=== PATIENT | female | born 2000 | race Asian ===

== ENCOUNTER 2022-12-28 16:01 | Outpatient (CLI) | payer BC, SELFPAY ==
[2022-12-28 18:50] LABS: HIV 1/2/P24 Combo Screen* Negative (Negative)
[2022-12-28 18:58] LABS: Hepatitis C Virus Antibody* Negative (Negative)
== END 2022-12-28 16:02 | disposition home or self-care (01) ==
PROVIDERS: Visit Provider Obstetrics & Gynecology
DX: N89.8 Other specified noninflammatory disorders of vagina (principal); L98.9 Disorder of the skin and subcutaneous tissue, unspecified
CPT/HCPCS: 86703; 86803

== ENCOUNTER 2022-12-30 19:47 | Emergency (ER) | payer BC, SELFPAY ==
[2022-12-30 19:52] VITALS: BP 115/75; PULSE 91; RESP 18; TEMP 36.7; O2SAT 99; BMI 23.2
--- NOTE | 2023-01-01 09:51 | ED.GENADULT ---
HPI - General Adult General Chief complaint: Dental/Oral/Mouth Injury/Pain Stated complaint: Bad Mouth Sores,Right Ear Numb & Ringing Time Seen by Provider: 12/30/22 20:03 History of Present Illness HPI narrative: 9-10 months of patchy bruises occurring in various areas of her body. Increasingly red in the lower extremities. These have been present and are reactivated her irritated if she scratches them. Also has had oral lesions corresponding with these flares of bruises. Neither do these go away but they do settle down and periodically flare corresponding with the bruisings. These oral lesions can begin with blisters. [facility]ops[facility] similar [facility] Has had corresponding time of vaginal itching which she treats periodically as if potential yeast infection. There appears to be question of potential lichen planus. Does have a history of vitiligo never treated with steroids. distressed in large part because mouth can get so painful especially overnight. Has what sounds like cosmetic dermatology appointment tomorrow and appointment with associated dermatologists in 2 days time. From [place] without clearly established primary care here. Related Data Previous Rx's Medication Instructions Recorded Magic Mouthwash 5 - 10 ml PO QID #240 mL 12/30/22 (Lidocaine/Benadryl/Maalox) 120 mL suspension Magic Mouthwash 5 - 10 ml PO QID #240 mL 12/30/22 (Lidocaine/Benadryl/Maalox) 120 mL suspension triamcinolone acetonide 0.025 % 1 applic topical BID PRN Vulvar 01/02/23 topical cream Itching #15 grams Allergies Allergy/AdvReac Type Severity Reaction Status Date / Time latex Allergy Intermediate Numbness Verified 12/30/22 19:55 Penicillins Allergy Intermediate Hives Verified 12/30/22 19:55 Review of Systems Status of ROS: Reports: 10 or more systems reviewed and unremarkable except as noted in History and below PFSH PFSH Family History (Updated 12/28/22 @ 16:11 by Liliya Bo MD) Mother High blood pressure Uncle Schizophrenia Social History Narrative: Single, 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 Highest level of school completed/degree received: Bachelor's degree Smoking Status: Current some day smoker How often do you have a drink containing alcohol: 2-3 times a week AUDIT-C Alcohol total score: 3 Non-prescribed substance use: denies use Are you now , , , , never or living with a partner: never Social isolation score (0-1 are the most socially isolated patients): 0 Do you think of yourself as: straight/heterosexual Gender Identity: female Are you currently sexually active: Yes In the past 12 months, how many sex partners have you had: more than one What kind of protection do you use against STDs: condoms Are you using contraception or practicing any form of control: Yes (Condoms, nonlatex) Exam Narrative: Exam Narrative: Pleasant nad. breathing easily with clear lungs. heart with rrr no mrg. cn 2 - 12 intact. Whitish lacy lesions overlying some speckling almost blister formation as well over the soft palate and in the upper posterior jaw. There are some with erythematous base. Skin with numerous irregular shape and size purpuric patches. They are fainter on the lower extremities and generally more mildly erythematous. Thumbnails with central depressions on both thumb nails as well as horizontal ridges on most finger nails. Evidence of picking on at least the thumb nails and periungual folds. not examined. Const: Documenting provider has reviewed patient's vital signs: yes Course Vital Signs Vital signs: Initial Vital Signs Temperature 98.0 F 12/30/22 19:52 Temperature Source Temporal Artery Scan 12/30/22 19:52 Pulse Rate 91 12/30/22 19:52 Respiratory Rate 18 12/30/22 19:52 Blood Pressure 115/75 12/30/22 19:52 Blood Pressure Mean 88 12/30/22 19:52 Blood Pressure Position Sitting 12/30/22 19:52 Pulse Oximetry 99 12/30/22 19:52 Oxygen Delivery Method 12/30/22 19:52 Vital Signs Temperature 98.0 F 12/30/22 19:52 Pulse Rate 91 12/30/22 19:52 Respiratory Rate 18 12/30/22 19:52 Blood Pressure 115/75 12/30/22 19:52 Pulse Oximetry 99 12/30/22 19:52 Oxygen Delivery Method 12/30/22 19:52 Temperature 98.0 F 12/30/22 19:52 Pulse Rate 91 12/30/22 19:52 Respiratory Rate 18 12/30/22 19:52 Blood Pressure 115/75 12/30/22 19:52 Pulse Oximetry 99 12/30/22 19:52 Oxygen Delivery Method 12/30/22 19:52 Medical Decision Making MDM Narrative Medical decision making narrative: reviewed labs with Valerie from 2 days ago. I think that workup with dermatology appropriate at this point. perhaps eventually rheumatology. lichen planus does remain in the differential. Discharge Plan Discharge Clinical Impression: Oral mucosal lesion, Purpura Patient Disposition: Home, Self-Care Condition: Stable Additional Instructions: Do stay well hydrated. Keep using that humidifier. Waking at night to moisten your mouth sounds like a good idea as well. I do not know how long you will be in the area but I do think it would be important to establish primary care to help coordinate all of this, at least depending on these appointments early this week. This might be Dr. Bo (you might inquire directly if she is able to help like that) or another provider as mentioned. For sure you want to make that Saturday appointment. This does very much seem to be a dermatology diagnosis and if they can not make the diagnosis, ask them where you need to go or who you need to consult with. Temporizing with extra-strength Orajel is still okay I think. Otherwise this mouthwash used regularly might provide some relief. Can take ibuprofen in addition to acetaminophen. You might replace ibuprofen with up to 500 mg naproxen 2 times daily. Tylenol 3 from [facility] Activity Level: No Restrictions Discharge Diet: Regular Prescriptions: New Magic Mouthwash (Lidocaine/Benadryl/Maalox) 120 mL suspension 5 - 10 ml PO QID Qty: 240 1RF Rx Instructions: Lidocaine Viscous 2 % mucosal solution 40 mL; Maalox 200 mg-200 mg-20 mg/5 mL oral suspension 40 mL; Benadryl 12.5 mg/5 mL oral elixir 40 mL; Per 120 mL SWISH AND SPIT. MAY COMPOUND IF FIRST PRODUCT IS NOT AVAILABLE. Magic Mouthwash (Lidocaine/Benadryl/Maalox) 120 mL suspension 5 - 10 ml PO QID Qty: 240 1RF Rx Instructions: Lidocaine Viscous 2 % mucosal solution 40 mL; Maalox 200 mg-200 mg-20 mg/5 mL oral suspension 40 mL; Benadryl 12.5 mg/5 mL oral elixir 40 mL; Per 120 mL SWISH AND SPIT. MAY COMPOUND IF FIRST PRODUCT IS NOT AVAILABLE. No Action triamcinolone acetonide 0.025 % cream 1 applic topical BID PRN (Reason: Vulvar Itching) Qty: 15 0RF Follow Up/Referrals: Provider,Not a Local [Primary Care Provider] - Stand Alone Forms: [employer] Info Instructions
== END 2022-12-30 21:34 | disposition home or self-care (01) ==
PROVIDERS: Emergency Provider Family Medicine
DX: K13.79 Other lesions of oral mucosa (principal); D69.2 Other nonthrombocytopenic purpura
CPT/HCPCS: 99283; 99284

== ENCOUNTER 2023-01-22 15:09 | Outpatient (CLI) | payer BC, SELFPAY | END 2023-01-22 15:10 | disposition home or self-care (01) | PROVIDERS: Visit Provider Family Medicine | DX: Z01.419 Encounter for gynecological examination (general) (routine) without abnormal findings (principal); D64.9 Anemia, unspecified; R53.83 Other fatigue; L51.9 Erythema multiforme, unspecified; Z13.6 Encounter for screening for cardiovascular disorders; Z13.29 Encounter for screening for other suspected endocrine disorder | CPT/HCPCS: 80053; 80061; 82306; 82607; 82728; 84443 ==